=== PATIENT | male | born 1935 | race Caucasian/White ===

== ENCOUNTER 2020-11-10 13:34 | Emergency (ER) | payer MEDICARE, OTHER ==
[~2020-11-10 13:34] MED LIST: ALFUZOSIN HCL E10 MG PO; AMLODIPINE BESY10 MG PO; ASPIR-LOW81 MG PO; CERTAGEN1 EACH PO; DOXYCYCLINE HY100 MG PO; HYDRALAZINE 10M10 MG PO; LANTUS **100 UNITS/ SC; LIPITOR20 MG PO; LOPRESSOR50 MG PO; NOVOLOG VI100 UNIT/1 SC; OMEPRAZOLE20 MG PO; PLAVIX75 MG PO; PROSCAR5 MG PO
[2020-11-10 13:55] LABS: BASOPHIL 0.1 % (0-2); EOSINOPHIL 0 % (0-7); HGB 9.8 g/dl (13.2-18.0); LYMPHOCYTE 9.7 % (15-48); MCH 33.1 pg (25.0-31.0); MCHC 32.7 g/dL (32.0-36.0); MCV 101.4 fL (78.0-100.0); MONOCYTE 9.5 % (0-12); MPV 10.8 fL (6.0-9.5); NEUTROPHIL 80.1 % (41-80); NRBC 0; PLT 251 K/uL (150-400); RBC 2.96 M/uL (4.70-6.00); RDW 15.1 % (11.5-14.0); WBC 17.5 K/uL (4.0-10.5)
[2020-11-10 14:18] LABS: ALBUMIN 3.4 g/dL (3.4-5.0); BILIRUBIN - TOTAL 0.7 mg/dL (0.2-1.0); BUN/CREAT RATIO (CALC) 18.7 RATIO; CREATININE 2.57 mg/dL (0.67-1.17); GLOBULIN (CALCULATION) 4.4 g/dL; POTASSIUM 4.7 mmol/L (3.5-5.1); TOTAL PROTEIN 7.8 g/dL (6.4-8.2)
[2020-11-10 19:44] LABS: BUN/CREAT RATIO (CALC) 18.6 RATIO; CREATININE 2.64 mg/dL (0.67-1.17); POTASSIUM 4.8 mmol/L (3.5-5.1)
== END 2020-11-10 23:05 | disposition other institution (70) ==
LOC: FER 13:34
PROVIDERS: Physician Assistant
DX: I13.0 Hypertensive heart and chronic kidney disease with heart failure and stage 1 through stage 4 chronic kidney disease, or unspecified chronic kidney disease (principal); E11.22 Type 2 diabetes mellitus with diabetic chronic kidney disease; N18.4 Chronic kidney disease, stage 4 (severe); I50.9 Heart failure, unspecified; E11.65 Type 2 diabetes mellitus with hyperglycemia; I21.4 Non-ST elevation (NSTEMI) myocardial infarction; J96.91 Respiratory failure, unspecified with hypoxia; E11.40 Type 2 diabetes mellitus with diabetic neuropathy, unspecified; I25.10 Atherosclerotic heart disease of native coronary artery without angina pectoris; I25.2 Old myocardial infarction; Z79.4 Long term (current) use of insulin; Z95.1 Presence of aortocoronary bypass graft; Z95.5 Presence of coronary angioplasty implant and graft; Z79.82 Long term (current) use of aspirin; Z79.02 Long term (current) use of antithrombotics/antiplatelets; Z79.899 Other long term (current) drug therapy; Z20.822 Contact with and (suspected) exposure to COVID-19
CPT/HCPCS: 36415; 36600; 71045; 80048; 80053; 82803; 83880; 84484; 85025; 93005; J1940; U0002